=== PATIENT | male | born 1970 | race Asian ===

== ENCOUNTER 2025-05-25 15:56 | Emergency (ER) | payer OTHER, SELFPAY ==
[2025-05-25 16:05] VITALS: BP 162/111; PULSE 96; RESP 20; TEMP 37.2; O2SAT 98; BMI 32.7
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
--- OUTSIDE RECORDS SUMMARY | 2025-05-25 17:11 | XMS_ITS | Clinical Summary ---
Author Organization [facility] Address [address] [place] [id number] Care Team Providers Care Drum Loader And Unloader Name Role Phone Tony Hyman MD Primary Care Provider [phone] Allergies No known active allergies Medications predniSONE (DELTASONE) 20 MG tabletIndication s:Acute gout involving toe of left foot, unspecified cause Take 3 tabs by mouth daily x 3 days, then 2 tabs daily x 3 days, then 1 tab daily x 3 days, then 1/2 tab daily x 3 days. 20 tablet 10/27/2023 Active indomethacin (INDOCIN) 50 MG capsuleIndicatio ns:Acute idiopathic gout of left foot Take 1 capsule (50 mg) by mouth 3 times daily (with meals) 30 capsule 3 10/27/2023 Active amLODIPine (NORVASC) 10 MG tablet Take 10 mg by mouth daily 10/13/2023 Active atorvastatin (LIPITOR) 20 MG tablet Take 20 mg by mouth daily 12/12/2023 Active hydroCHLOROthiaz guy 12.5 MG tablet Take 1 tablet by mouth daily 12/12/2023 Active Active Problems No known active problems Immunizations Immunization Administration Dates Next Due COVID-19 Monovalent Booster 18+ (Moderna) 2020 Social History Tobacco Use Types Packs/Day Years Used Date Smoking Tobacco: Never Smokeless Tobacco: Never Tobacco Cessation:Counseling Given: Not Answered PHQ-2 Answer Date Recorded PHQ-2 Score 0 08/01/2021 Adolescent Education Answer Date Record ed Getting School Help Needed Not on file 06/07 Sex and Gender Information Value Date Recorded Sex Assigned at Not on file Legal Sex Male 8:17 AM CDT Gender Identity Not on file Sexual Orientation Not on file Last Filed Vital Signs Vital Sign Reading Time Taken Comments Blood Pressure 126/78 02/04/2024 6:46 PM CDT Pulse 89 02/04/2024 6:46 PM CDT Temperature 36.9 C (98.4 F) 02/04/2024 6:46 PM CDT Respiratory Rate 18 02/04/2024 6:46 PM CDT Oxygen Saturation 99% 02/04/2024 6:46 PM CDT Inhaled Oxygen Concentration - - Weight 78.7 kg (173 lb 6.4 oz) 02/04/2024 6:46 P M CDT Height 157.5 cm (5' 2) 08/15/2023 3:39 AM HEARTH FEEDER Body Mass Index 31.72 08/15/2023 3:39 AM HEARTH FEEDER Plan of Treatment Health Maintenance Due Date Last Done Comments ADVANCE CARE PLANNING 1972 CT COLONOGRAPHY 1972 FIT 1972 FLEX SIG 1972 sDNA (Cologuard) 1972 COLONOSCOPY 1982 COLORECTAL CANCER SCREENING 1982 HEPATITIS B VACCINE (1 of 3 - 19+ 3-dose series) 1991 YEARLY PREVENTIVE VISIT 06/10/2019 06/10/2018, 06/10 PNEUMOCOCCAL VACCINE 50+ YEARS (1 of 1 - PCV) 2022 ZOSTER VACCINE (1 of 2) 2022 ANNUAL REVIEW OF HM ORDERS 08/01/2022 08/01/2021 LIPID 06/10/2023 06/10/2018 PHQ-2 (once per calendar year) 2024 08/01/2021, 08/01/2021, 08/01/2021, Additional history exists COVID-19 VACCINE ( - 2024- season) 2025 08/15/2021, 12/12/2020 INFLUENZA VACCINE (#1) 2025 DIABETES SCREENING 08/15/2026 08/15/2023, 06/10/2018 DTAP/TDAP/TD VACCINE (2 - Td or Tdap) 10/13/2033 10/13/2023 HEPATITIS C SCREENING Completed 10/13/2023 HIV SCREENING Completed 10/13/2023 HPV VACCINE (No Doses Required) Completed MENINGITIS VACCINE Aged Out No longer eligible based on patient's age to complete this topic Procedures Procedure Name Priority Date/Time Associated Diagnosis Comments BASIC METABOLIC PANEL STAT 08/15/2023 4:07 AM HEARTH FEEDER LIPID PROFILE Routine 06/10/2018 12:16 PM CDT from Last 3 Months or Most Recently Relevant to Health Maintenance Results * (ABNORMAL) Basic metabolic panel (08/15/2023 4:07 AM HEARTH FEEDER) Sodium 140 135 - 145 mmol/L 08/15/2023 4:53 AM [facility] Comment:Reference intervals for this test were updated on 06/10/2023 to more accurately reflect our healthy population. There may be differences in the flagging of prior results with similar values performed with this method. Interpretation of those prior results can be made in the context of the updated reference intervals. Potassium 4.3 3.4 - 5.3 mmol/L 08/15/2023 4:53 AM [facility] Comment:Specimen slightly he molyzed. The reported potassium value may be falsely elevated. Analysis of a non-hemolyzed specimen (i.e. re-draw) may result in a lower potassium value. Chloride 105 98 - 107 mmol/L 08/15/2023 4:53 AM [facility] Carbon Dioxide (CO2) 25 22 - 29 mmol/L 08/15/2023 4:53 AM [facility] Anion Gap 10 7 - 15 mmol/L 08/15/2023 4:53 AM [facility] Urea Nitrogen 20.3(H) 6.0 - 20.0 mg/dL 08/15/2023 4:53 AM [facility] Creatinine 0.78 0.67 - 1.17 mg/dL 08/15/2023 4:53 AM [facility] GFR Estimate >90 >60 mL/min/1. 73m2 08/15/2023 4:53 AM [facility] Calcium 9.2 8.6 - 10.0 mg/dL 08/15/2023 4:53 AM [facility] Glucose 114(H) 70 - 99 mg/dL 08/15/2023 4:53 AM [facility] Blood STRUCTURE OF RIGHT UPPER LIMB / Unknown Venipuncture / Unknown 08/15/2023 4:07 AM HEARTH FEEDER 08/15/2023 4:16 AM HEARTH FEEDER us Silvino Rowe MD LAB - BLOOD ORDERABLES Final Result [facility] [address] [place] [address], [facility] [phone] * (ABNORMAL) Lipid Profile (06/10/2018 12:16 PM CDT) Triglycerides 232(H) <=149 mg/dL 06/10/2018 6:13 PM CDT [facility] Cholesterol 185 <=199 mg/dL 06/10/2018 6:13 PM CDT [facility] LDL Cholesterol Calculated 106 <=129 mg/dL 06/10/2018 6:13 PM CDT [facility] Direct Measure HDL 33(L) >=40 mg/dL 06/10/2018 6:13 PM CDT [facility] Patient Fasting > 8hrs? Unknown 06/10/2018 6:13 PM CDT [facility] Blood specimen (specimen) Venipuncture / Unknown 06/10/2018 12:16 PM CDT 06/10/2018 5:20 PM CDT us Tony Hyman MD LAB - BLOOD ORDERABLES Final Result Performing Organization Address City/[facility]/ZIP Co de Phone Number [facility] [address] [place] [address], [facility] [address] [place] [address] from Last 3 Months or Most Recently Relevant to Health Maintenance Insurance [facility] Care Teams Drum Loader And Unloader Relationship Specialty Start Date End Date Tony Hyman MD [address] [place] [id number] PCP - General Family Medicine 05/21/21
--- OUTSIDE RECORDS SUMMARY | 2025-05-25 17:11 | XMS_ITS | Encounter Summary ---
Author Organization [facility] Address [address] [place] [address] Care Team Providers Care Disbursement Clerk Name Role Phone Cleopatra Mckee MD Primary Care Provider [phone] Reason for Visit * Reason Comments Refill atorvastatin (LIPITO R) 20 MG tablet [Pharmacy Med Name: ATORVASTATIN 20 MG TABLET] Encounter Details Date Type Department Care Team ([facility] Contact Info) Description 04/23/[address] [address] Cleopatra Mckee MD [address] [place] [address] Refill (atorvastatin (LIPITOR) 20 MG tablet [Pharmacy Med Name: ATORVASTATIN 20 MG TABLET]) Social History Tobacco Use Types Packs/Day Years Used Date Smoking Tobacco: Never Alcohol Use Standard Drinks/Week Comments Never 0 (1 standard drink = 0.6 oz pur e alcohol) PHQ-2 Answer Date Recorded PHQ-2 Score 0 10/13/2023 Financial Resource Strain Answer Date R ecorded Is it hard for you to pay fo r the very basics like food, housing, medical care or heating? No 10/13/2023 Food Insecurity Answer Date Recorded Does your food run out before you have the money to buy more? No 10/13/2023 Transportation Needs Answer Date Record ed Does a lack of transportatio n keep you from your medical appointments or from getting your medications? No 024 Sex and Gender Information Value Date Recorded Sex Assigned at Not on file Legal Sex Male 9:07 AM STORY ANALYST Gender Identity Not on file Sexual Orientation Not on file documented as of this encounter Nursing Notes * Barb Grigsby RN - 04/25/2025 3:29 PM CDT Refilled per standing order. * Ruthyodilia Jose E Xrwcomm - 04/23/2025 7:41 AM CDT atorvastatin (LIPITOR) 20 MG tablet [Pharmacy Med Name: ATORVASTATIN 20 MG TABLET] Medication started: 12/12/2023 Last ordered by CLEOPATRA MCKEE: 11/03/2024 (171 days ago) QTY: 90, Refills: 1, Sig: take 1 tablet by mouth every day (unchanged) -> Refill x 12 months, qty: 90, refills: 3 (until due for an office visit) Last qualifying visit: 03/03/2025 (with CLEOPATRA MCKEE) Next scheduled visit: None [facility] Embedded Refills, Reference: [id number], 04/23/2025 7:40:58 AM CARMELAT, Pool: NOLAN Refill Centralized Services - Primary Care ([id number]) documented in this encounter Plan of Treatment Not on file documented as of this encounter Visit Diagnoses Diagnosis Mixed hyperlipidemia (HRC) Mixed hyperlipidemia documented in this encounter Care Teams Disbursement Clerk Relationship Specialty Start Date End Date Cleopatra Mckee MD [address] [place] [address] PCP - General Family Practice 11/04/23 documented as of this encounter
--- OUTSIDE RECORDS SUMMARY | 2025-05-25 17:11 | XMS_ITS | Encounter Summary ---
Author Organization [facility] Address [address] [place] [address] Care Team Providers Care Chainstitch Felled Seam Operator Name Role Phone Cleopatra Mckee MD Primary Care Provider [phone] Reason for Visit * Reason Comments Refill losartan (COZAAR) 25 MG tablet [Pharmacy Med Name: LOSARTAN POTASSIUM 25 MG TAB] Encounter Details Date Type Department Care Team (Late st Contact Info) Description 04/23/[address] [address] Cleopatra Mckee MD [address] [place] [address] Refill (losartan (COZAAR) 25 MG tablet [Pharmacy Med Name: LOSARTAN POTASSIUM 25 MG TAB]) Social History Tobacco Use Types Packs/Day Years [...] on file Legal Sex Male 9:07 AM TURNTABLE MAN Gender Identity Not on file Sexual Orientation Not on file documented as of this encounter Nursing Notes * Apryl Chu RN - 04/25/2025 2:45 PM CDT Refilled per standing order. * Jose E Connelly Xrwcomm - 04/23/2025 1:07 PM CDT losartan (COZAAR) 25 MG tablet [Pharmacy Med Name: LOSARTAN POTASSIUM 25 MG TAB] Medication started: 02/19/2024 Last ordered by CLEOPATRA MCKEE: 01/25/2025 (88 days ago) QTY: 90, Refills: 0, Sig: take 1 tablet bymouth every day (unchanged) -> Refill x 12 months, qty: 90, refills: 3 (until due for a(n) Cr check and K check) Last qualifying visit: 03/03/2025 (with CLEOPATRA MCKEE) Next scheduled visit: None Cr: 0.76 mg/dL on 02/02/2025 K: 4.4 mEq/L on 02/02/2025 [facility] Embedded Refills, Reference: [id number], 04/23/2025 1:07:02 PM CDT, Pool: Refill Centralized Services - Primary Care ([id number]) * Jose E Connelly - 04/23/2025 1:07 PM CDT The following lab order(s) may be associated with the following Patient Result Comment (Entered by Cleopatra Mckee MD at 02/03/2025 5:07 AM): BASIC METABOLIC PANEL Your electrolytes and kidney function were within acceptable limits. documented in this encounter Plan of Treatment Not on file documented as of this encounter Visit Diagnoses Diagnosis Essential hypertension (HRC) Unspecified essential hypertension documented in this encounter Care Teams Chainstitch Felled Seam Operator Relationship Specialty Start Date End Date Cleopatra Mckee MD [address] [place] [address] PCP - General Family Practice 11/04/23 documented as of this encounter
--- OUTSIDE RECORDS SUMMARY | 2025-05-25 17:11 | XMS_ITS | Clinical Summary ---
Author Organization [facility] Address [address], [place] [address] Care Team Providers Care Air Technician Name Role Phone Joel Mckee MD Primary Care Provider [phone] Source Comments You are receiving this document as you are listed as the primary care provider,follow-up provider, or the patient has been referred to you for consultation.This is in compliance with the Medicare andMedicaid EHR Incentive Program,which states Providers who transition their patient to another setting of careor provider of care or refers their patient to another provider of care shouldprovide summary care record for each transition of care or referral. [employer] Allergies No known active allergies Medications amLODIPine (NORVASC) 5 MG tabletIndications:E ssential hypertension (HRC) Take 1 Tablet (5 mg) by mouth daily. 90 Tablet 3 5 Active indomethacin (INDOCIN) 50 MG capsuleIndications: Chronic gout without tophus, unspecified cause, unspecified site Take 1 Capsule (50 mg) by mouth three times a day as needed. 90 Capsule 3 5 Active atorvastatin (LIPITOR) 20 MG tabletIndications:M ixed hyperlipidemia (HRC) TAKE 1 TABLET BY MOUTH EVERY DAY 90 Tablet 3 5 Active losartan (COZAAR) 25 MG tabletIndications:E ssential hypertension (HRC) TAKE 1 TABLET BY MOUTH EVERY DAY 90 Tablet 3 5 Active Encounters Date Type Department Care Team Description 04/23/[address] [place] [address] Joel Mckee MD Refill (losartan (COZAAR) 25 MG tablet [Pharmacy Med Name: LOSARTAN POTASSIUM 25 MG TAB]) 04/23/[address] [address] Joel Mckee MD Refill (atorvastatin (LIPITOR) 20 MG tablet [Pharmacy Med Name: ATORVASTATIN 20 MG TABLET]) 03/03/2025 2:20 PM CDT Office Visit [address] [address] Joel Mckee MD Essential hypertension (HRC) (Primary Dx); Chronic gout without tophus, unspecified cause, unspecified site from Last 3 Months Immunizations Immunization Administration Dates Next Due Eulalio COVID-19 Vaccine 12/12/2020 Moderna Monovalent 12+ 08/15/2021 Tdap 10/13/2023 Social History Tobacco Use Types Packs/Day Years Used Date Smoking Tobacco: Never Tobacco Cessation:Counseling Given: Not Answered Alcohol Use Standard Drinks/Week Comments Never 0 [...] on file Legal Sex Male 9:07 AM [employer]BILE HOME [employer] Gender Identity Not on file Sexual Orientation Not on file Last Filed Vital Signs Vital Sign Reading Time Taken Comments Blood Pressure 120/69 03/03/2025 2:09 PM CDT Pulse 76 03/03/2025 2:09 PM CDT Temperature 36.2 C (97.1 F) 03/03/2025 2:09 PM CDT Respiratory Rate - - Oxygen Saturation 96% 03/03/2025 2:09 PM CDT Inhaled Oxygen Concentration - - Weight 79.6 kg (175 lb 6.4 oz) 02/02/2025 7:46 A M CDT Height 166.9 cm (5' 5.7) 02/19/2024 8:06 AM CDT Body Mass Index 28.57 02/19/2024 8:06 AM CDT Plan of Treatment Health Maintenance Due Date Last Done Comments PSA Screening Discussion 1972 Tuberculosis Screening 1972 HepB Vaccine (1) 1991 FIT Colon Cancer Screening 2016 Pneumococcal Vaccine 50+ Yrs (1 of 1 - PCV) 2022 Zoster/Shingles Vaccine (1 o f 2) 2022 Adult Preventive Visit 10/13/2024 10/13/2023 COVID-19 Vaccine (3 - 2024-2 6 season) 2025 08/15/2021, 12/12/2020 Influenza Vaccine (#1) 2025 Prediabetes: HGBA1C 02/02/2026 02/02/2025, 02/19/2024, 10/13/2023 Cholesterol 02/02/2030 02/02/2025, 02/19/2024, 10/13/2023 DTaP/Tdap/Td Vaccine (2 - Tdap) 10/13/2033 10/13/2023 HIV Screening (Preventive Services) Completed 10/13/2023 Hep B Screening ([facility]) Completed 10/13/2023 Hep C Screening (Preventive Services) Completed 10/13/2023 HepA Vaccine Aged Out No longer eligi ble based on patient's age to complete this topic Hib Vaccine Aged Out No longer eligi ble based on patient's age to complete this topic IPV (Polio) Vaccine Aged Out No longe r eligible based on patient's age to complete this topic MCV4 Vaccine Aged Out No longer eligi ble based on patient's age to complete this topic Meningococcal B Vaccine Aged Out No l onger eligible based on patient's age to complete this topic Procedures Procedure Name Priority Date/Time Associated Diagnosis Comments HGB A1C Routine 02/02/2025 8:13 AM CDT Prediabetes LIPID PANEL & DIRECT LDL (IF NEEDED) Routine 02/02/2025 8:13 AM CDT Mixed hyperlipidemia (HRC) HEPATITIS B RISK CASCADE Routine 10/13/2023 10:19 AM [employer]BILE HOME MECH[employer]IC Need for hepatitis B screening test HIV 1/2 AG/AB 4TH GEN Routine 10/13/2023 10:19 AM MOBILE HOME MECHANIC Screening for HIV (human immunodeficiency virus) HEPATITIS C ANTIBODY, WITH REFLEX (ANTI-HCV) Routine 10/13/2023 10:19 AM MOBILE HOME MECHANIC Need for hepatitis C screening test from Last 3 Months or Most Recently Relevant to Health Maintenance Results * (ABNORMAL) Lipid Panel & Direct LDL (if Needed) (02/02/2025 8:13 AM CDT) Cholesterol 140 0 - 199 mg/dL 02/02/2025 2:11 PM CDT [facility] Triglyceride 141 <=149 mg/dL 02/02/2025 2:11 PM CDT [facility] HDL Cholesterol 33(L) >=40 mg/dL 02/02/2025 2:11 PM CDT [facility] LDL, Calculated 79 <130 mg/dL 02/02/2025 2:11 PM CDT [facility] Non HDL Chol, Calculated 107 <=159 mg/dL 02/02/2025 2:11 PM CDT [facility] Cholesterol/HDL Ratio 4.2 <=5.0 02/02/2025 2:11 PM CDT [facility] Hours Fasting 11.5 8 - 12 Hours 02/02/2025 2:11 PM CDT [facility] Blood Venipuncture / Unknown 02/02/2025 8:13 AM CDT 02/02/2025 8:13 AM CDT us Joel Mckee MD LAB_1 Final Result [facility] [address] [place] [address], [facility] [place] [facility] [place] [id number] * Hgb A1C (02/02/2025 8:13 AM CDT) Hemoglobin A1C 5.6 <=5.6 % 02/02/2025 2:44 PM CDT [facility] Estimated Average Glucose (Calc) 114 < 117 mg/dL 02/02/2025 2:44 PM CDT [facility] Comment:Estimated average gl ucose (eAG) converts A1c into glucose units (mg/dL) and estimates average glucose over the past approximately 3 months. The eAG reference interval (<117 mg/dL) corresponds to an A1c of <5.7%. Blood Venipuncture / Unknown 02/02/2025 8:13 AM CDT 02/02/2025 8:13 AM CDT us Joel Mckee MD LAB_1 Final Result Performing Organization Address City/[facility]/ZIP Co de Phone Number [facility] [address] * HIV 1/2 Ag/Ab 4th Generation (10/13/2023 10:19 AM MOBILE HOME MECHANIC) HIV 1/2 Antigen/Anti body (4th generation) Negative (Non Reactive) Negative (Non Reactive) 10/13/2023 1:48 PM MOBILE HOME MECHANIC [facility] Comment:HIV-1 p24 Antigen an d HIV-1/HIV-2 Antibody not detected Blood Venipuncture / Unknown 10/13/2023 10:19 AM MOBILE HOME MECHANIC 10/13/2023 10:19 AM MOBILE HOME MECHANIC us Joel Mckee MD LAB_1 Final Result Performing Organization Address City/[facility]/ZIP Co de Phone Number [facility] [address] * Hepatitis B Risk [place] (10/13/2023 10:19 AM MOBILE HOME MECHANIC) Hepatitis B Surface Antigen Negative (Non Reactive) Negative (Non Reactive) 10/13/2023 1:47 PM MOBILE HOME MECHANIC [facility] Comment:To aid in the assess ment of a patient's risk to HBV, the following tests have been added: HBcAb and HBsAb. Blood Venipuncture / Unknown 10/13/2023 10:19 AM MOBILE HOME MECHANIC 10/13/2023 10:19 AM MOBILE HOME MECHANIC us Joel Mckee MD LAB_1 Final Result Performing Organization Address [facility] Co de Phone Number [facility] [address] * Hepatitis C Antibody, with Reflex (10/13/2023 10:19 AM MOBILE HOME MECHANIC) Hepatitis C Antibody Negative (Non Reactive) Negative (Non Reactive) 10/13/2023 1:55 PM MOBILE HOME MECHANIC [facility] Comment:Antibodies to HCV no t detected. Does not exclude the possiblity of exposure to HCV. Blood Venipuncture / Unknown 10/13/2023 10:19 AM MOBILE HOME MECHANIC 10/13/2023 10:19 AM MOBILE HOME MECHANIC us Joel Mckee MD LAB_1 Final Result Performing Organization Address [facility] Co de Phone Number [facility] [address] from Last 3 Months or Most Recently Relevant to Health Maintenance Insurance [address] [place], [place] [id number] Care Teams Air Technician Relationship Specialty Start Date End Date Joel Mckee MD [address] [place] [address] PCP - General Family Practice 11/04/23
== END 2025-05-25 17:19 | disposition home or self-care (01) ==
LOC: ED 17:10
PROVIDERS: Emergency Provider Student in an Organized Health Care Education/Training Program
DX: T24.201A Burn of second degree of unspecified site of right lower limb, except ankle and foot, initial encounter (principal); X08.8XXA Exposure to other specified smoke, fire and flames, initial encounter
CPT/HCPCS: 99283